=== PATIENT | male | born 1990 | race Caucasian/White ===

== ENCOUNTER 2018-02-15 18:01 | Inpatient (IN) ==
[2018-02-15] MEDS ORDERED: ONDANSETRON 4 MG/2 ML VIAL IVP ONE (18:55)
[2018-02-15] MEDS ORDERED: KETOROLAC 15 MG/1 ML VIAL IVP ONE (18:55)
--- NOTE | 2018-02-15 18:59 | PDOC ---
Gen Adult / Medical Screen HPI - General Chief Complaint: General Medical Stated Complaint: VOMITING, FEVER WITH SHAKING SINCE LAST NIGHT Date Seen by Provider: 02/15/18 Time Seen by Provider: 18:54 Source: POSITIVE: Patient, Spouse Exam Limitations: POSITIVE: No limitations Nurse's Notes Reviewed & Considered: Yes EMS Report Reviewed & Considered: Verbal - Indicators Temperature Between 95 and 101 Degrees: Yes Respirations Between 12 and 20: Yes Blood Pressure Between 100-165 (sys) and 60-100 (almeida): No Pulse Range Between 60-105 (100 for age > 60 years): Yes Severe Pain (Greater than 5/10 Reported): No Chest or Abdominal Pain: Yes Inability to Walk: No Pt Reports Active High Risk Cond. (TB/Hepatitis/HIV/Chemo): No Abnormal Mental Status: No - History of Present Illness Initial Comments: This is a well-developed, well-nourished, very pleasant, 27-year-old male complaining of nausea vomiting and diarrhea. Patient developed chills and sweats last night and began to vomit approximately midnight. He's had a waxing and waning course which acutely got worse this afternoon and he presented to the medical office building and was sent here for further evaluation. His found his temperature to be 103 and gave him to us, 200 mg ibuprofens, which improved his mentation and his myalgias. Patient has had headache, denies sore throat, no chest pain, no cough, no shortness of breath, he does have nausea vomiting and diarrhea, denies any hematuria or dysuria, no rashes. Body Location Affected: REPORTS: Head, Abdomen Timing: REPORTS: Abrupt Duration: <24 hours Similar Symptoms Previously: No Recent Care Received: REPORTS: Denies Any Prior Injuries Related to Current Complaint?: No - Patient Home Medications Home Medications: Home Medications Ibuprofen [Motrin] 400 mg PO PRN 02/15/18 - Patient Allergies Allergies/Adverse Reactions: Allergies 3 Allergy/AdvReac Type Severity Reaction Status Date / Time No Known Allergies Allergy Verified 02/15/18 19:24 Past Medical History - heen HEENT History: Denies History Cardiovascular History: Other (please comment) Additional Cardiovasular History: Open heart surgery for an aneurysm. Respiratory History: Denies History Gastrointestinal History: Denies History Genitourinary History: Denies History Endocrine History: Denies History Musculoskeletal History: Denies History Neurological History: Denies History Blood Disorders: Denies History Psychiatric History: Denies History Male Reproductive History: Denies History Cancer History: Denies History In Past Year Been Physically Harmed or Verbally Threatened: No History of MDRO: No Tobacco Use: Never Smoker In the Past 12 Months, Have Used or Abuse Any Substance: None Previous Surgical History: Yes Type / Date of Surgery: Open heart surgey for aneurysm. Significant Family History: No pertinent family hx ROS - Limitations ROS Limitations: No Limitations Constitution: REPORTS: Chills, Fever, Diaphoresis Cardiovascular: REPORTS: Denies Cardiac Symptoms Respiratory: REPORTS: Denies Resp Symptoms Neurological: REPORTS: Headache Gastrointestinal: REPORTS: Abdominal Pain (Generalized abdominal pain), Nausea, Vomitting, Diarrhea Endocrine: REPORTS: Denies Symptoms Musculoskeletal: REPORTS: Muscle Aches Genitourinary: REPORTS: Denies Symptoms Eyes: REPORTS: Denies Symptoms ENT: REPORTS: Denies Symptoms Skin: REPORTS: Denies Skin Symptoms Lympathic: REPORTS: Denies Lympathic Symptoms Immunologic: POSITIVE: Denies Symptoms Psychiatric: POSITIVE: Denies Psych Symptoms Gen Adult/Medical Screen Exam - General Appearance General Appearance: POSITIVE: Alert, Cooperative, No Acute Distress, No Evidence of Trauma - HEENT HEENT: POSITIVE: Head Inspection Nml, Eyes Inspection Nml, Ears Inspection Nml, Nose Inspection Nml, Oral/Dental Inspect. Nml, Pharynx Inspect. Nml, PERRL, EOMI - Pupils Pupil Size: 5 mm: Bilateral - Neck Neck: POSITIVE: Normal Inspection, Thyroid Normal - Respiratory Respiratory: POSITIVE: No Respiratory Distress, Breath Sounds Normal, Chest Non- Tender - Cardiovascular Cardiovascular: POSITIVE: Regular Rate & Rhythm, No Murmur, No Gallop, PMI Normal Peripheral Pulses: Radial (L): 4+ - Abdomen Abdomen: Soft: (All Quadrants), Normal Bowel Sounds: (All Quadrants), Denies Tenderness: (All Quadrants), No Splenomegaly: (All Quadrants), No Hepatomegaly: (All Quadrants), No Guarding: (All Quadrants), No Rebound: (All Quadrants), No Palpable Pulse: (All Quadrants), No Palpabale Mass: (All Quadrants), No Distention: (All Quadrants), No Rigidity: (All Quadrants) - Back Back: POSITIVE: Normal Inspection - Neurological / Psychological Mental Status: POSITIVE: Mood Normal, Affect Normal Orientation: POSITIVE: Oriented x 3 - Skin Skin: POSITIVE: Normal Color, Warm, Dry, No Rash - Extremities Extremity: Non-Tender: (All Extremities), Normal ROM: (All Extremities), Normal Inspection: (All Extremities), Pelvis Stable: (All Extremities) Gen Adlt/Medical Scrn Progress - Results Reviewed by me Xrays/CTs/US Reviewed by me: Yes Discussed with Radiologist: Yes Lab Results Reviewed by Me: Yes CBC and BMP: 02/15/18 19:10 02/15/18 19:10 Lab Results:: Laboratory Results 3 02/15/18 02/15/18 02/15/18 19:10 19:10 19:45 WBC 16.41 H RBC 5.23 Hgb 14.9 Hct 42.5 MCV 81.3 MCH 28.5 MCHC 35.1 RDW Std Deviation 38.2 L RDW Coeff of Vipin 12.9 Plt Count 149 MPV 10.6 Neutrophils % (Manual) 77 Band Neutrophils % 15 H Lymphocytes % (Manual) 5 L Monocytes % (Manual) 3 Eosinophils % (Manual) 0 Basophils % (Manual) 0 Metamyelocytes % Not Reportable Myelocytes % Not Reportable Promyelocytes % Not Reportable Blast Cells Not Reportable WBC Morphology Comment Normal morphology Plt Morphology Comment Normal morphology RBC Morph Comment Normal morphology Sodium 137 Potassium 3.2 L Chloride 100 Carbon Dioxide 23 Anion Gap 14 BUN 21 Creatinine 1.3 Estimated GFR > 60 BUN/Creatinine Ratio 16.15 Glucose 120 H Calculated Osmolality 287.0 Lactic Acid 2.8 H Calcium 8.3 L Magnesium 1.0 L Total Bilirubin 2.5 H AST 48 ALT 48 Alkaline Phosphatase 38 Total Protein 6.3 Albumin 3.9 Globulin 2.4 L Albumin/Globulin Ratio 1.60 Ur Collection Type Urine Color Urine Clarity Urine pH Ur Specific [place] Urine Protein Urine Glucose (UA) Urine Ketones Urine Occult Blood Urine Nitrate Urine Bilirubin Urine Urobilinogen Ur Leukocyte Esterase Urine RBC Urine WBC Ur Squamous Epith Cells Ur Renal Epithelial Cell Urine Crystals Urine Bacteria Urine Casts Urine Mucus Urine Trichomonas Urine Yeast Ur Culture Indicated? 3 02/15/18 21:10 WBC RBC Hgb Hct MCV MCH MCHC RDW Std Deviation RDW Coeff of Vipin Plt Count MPV Neutrophils % (Manual) Band Neutrophils % Lymphocytes % (Manual) Monocytes % (Manual) Eosinophils % (Manual) Basophils % (Manual) Metamyelocytes % Myelocytes % Promyelocytes % Blast Cells WBC Morphology Comment Plt Morphology Comment RBC Morph Comment Sodium Potassium Chloride Carbon Dioxide Anion Gap BUN Creatinine Estimated GFR BUN/Creatinine Ratio Glucose Calculated Osmolality Lactic Acid Calcium Magnesium Total Bilirubin AST ALT Alkaline Phosphatase Total Protein Albumin Globulin Albumin/Globulin Ratio Ur Collection Type Voided specimen Urine Color Yellow Urine Clarity Clear Urine pH 5.5 Ur Specific [place] 1.025 Urine Protein 100 A Urine Glucose (UA) Negative Urine Ketones Negative Urine Occult Blood Negative Urine Nitrate Negative Urine Bilirubin Small Urine Urobilinogen 1.0 Ur Leukocyte Esterase Negative Urine RBC None Urine WBC 0-2 Ur Squamous Epith Cells Few Ur Renal Epithelial Cell None Urine Crystals None Urine Bacteria Rare Urine Casts None Urine Mucus Many Urine Trichomonas None Urine Yeast None Ur Culture Indicated? Culture not set - Patient's Progress Pain Medication Addressed: POSITIVE: Yes Re-Examine Time: 21:13 Status: POSITIVE: Improved - Consult Consult (If Yes, Name of Consulting MD & Time Called): Yes (2119 hrs, Dr. Hassan) Consulting MD will see pt:: POSITIVE: [facility] Admit Counseled: POSITIVE: Patient, Family, RE: Lab Results, RE: Radiology Results, RE : DX, RE: Need for F/U Patient Care Time - Estimated PCT Patient Care Time (In Minutes): 30 Vital Signs - Recent Vital Signs Vital Signs: Vital Signs (Last 8 hours) Temp Pulse Resp BP Pulse Ox 02/15/18 18:10 96.3 F L 100 16 96/53 94 02/15/18 18:01 96.3 F L 100 16 96/53 94 - VS Reviewed Vital Signs Reviewed: Yes Discharge Clinical Impression: Gastroenteritis, Dehydration, Fever Discharge Disposition: Admit to Observation Condition: Stable Follow Up With: NONE,NONE [Primary Care Provider] - Date Decision to Admit to Inpatient: 02/15/18 Time Decision to Admit to Inpatient: 21:39
[2018-02-15] MEDS: Sodium Chloride 0.9% 1,000 ML PRIMARY IV ONE (19:05)
[2018-02-15 19:12] LABS: Hematocrit [HCT] 42.5 % (42.0-52.0); Hemoglobin [HGB] 14.9 g/dL (14.0-18.0); MEAN CORPUSCULAR HEMOGLOBIN 28.5 PG (27-31); MEAN CORPUSCULAR HGB CONC 35.1 g/dL (33-37); MEAN CORPUSCULAR VOLUME 81.3 FL (80-90); MEAN PLATELET VOLUME 10.6 FL (7.4-12.2); RED BLOOD COUNT 5.23 10^6/uL (4.70-6.10)
[2018-02-15 19:23] LABS: BLOOD UREA NITROGEN 21 mg/dL (7-22); BUN/CREATININE RATIO 16.15 (6-20); SERUM ALBUMIN 3.9 g/dL (3.5-4.8)
[2018-02-15 19:27] LABS: BAND NEUTROPHILS % 15 % (0-10); BASOPHILS % (MANUAL) 0 % (0-1); EOSINOPHILS % (MANUAL) 0 % (0-8); MONOCYTES % (MANUAL) 3 % (0-12); NEUTROPHILS % (MANUAL) 77 % (50-80); PLATELET MORPHOLOGY COMMENT NORMAL MORPHOLOGY (NORM); RBC MORPHOLOGY COMMENT NORMAL MORPHOLOGY (NORM); WBC MORPHOLOGY COMMENT NORMAL MORPHOLOGY (NORM)
[2018-02-15] MEDS ORDERED: Magnesium Sulfate 2gm (Premix) 2 GM/50 ML BAG IV ONE ×2 (19:31→22:56)
[2018-02-15] MEDS ORDERED: Sodium Chloride 0.9% 1,000 ML PRIMARY IV ONE ×2 (20:34→22:56)
--- NOTE | 2018-02-15 20:34 | DI ---
EXAM: XR Abdomen 2 Views With XR Chest CLINICAL HISTORY: ITS.REASON fever/n/v Physician Notes: Tech Comments: TECHNIQUE: Frontal view of the chest, frontal view of the abdomen/pelvis and upright or decubitus view of the abdomen. COMPARISON: No relevant prior studies available. FINDINGS: Lungs: Mild lower lung opacities, possible atelectasis. Pleural space: Unremarkable. No pneumothorax. Heart: Cardiac silhouette within normal limits. Mediastinum: Unremarkable. Intraperitoneal space: No free air. Gastrointestinal tract: Scattered air-fluid levels, query ileus or enteritis. No significant bowel distention. Bones/joints: Unremarkable. Other findings: Postsurgical noted in the chest. IMPRESSION: 1. Mild lower lung opacities, possible atelectasis. 2. Scattered air-fluid levels, query enteritis or ileus. No significant bowel distention.
[2018-02-15 21:12] LABS: BILIRUBIN,URINE SMALL (NEG); CLARITY,URINE CLEAR (CLEAR); COLOR,URINE YELLOW (Y); GLUCOSE, URINE (UA) NEGATIVE (NEG); OCCULT BLOOD,URINE NEGATIVE (NEG); PH,URINE 5.5 (5.0-8.5); PROTEIN,URINE 100 mg/dl (NEG)
[2018-02-15 21:21] LABS: BACTERIA,URINE RARE; SQUAMOUS EPITHELIAL CELL,UR FEW; URINE SAMPLE TYPE VOIDED SPECIMEN; WBC,URINE 0-2
[2018-02-15] MEDS ORDERED: Acetaminophen 1000mg Inj 1,000 MG/100 ML VIAL IV PRN (21:50)
[2018-02-15] MEDS ORDERED: LIDOCAINE W/ SODIUM BICARB 0.5 ML SYR SUBD PRN (22:10)
[2018-02-15] MEDS ORDERED: ONDANSETRON 4 MG/2 ML VIAL IVP PRN (22:10)
--- NOTE | 2018-02-15 23:39 | PDOC ---
HPI - History of Present Illness Date of Service: 02/15/18 Time of Service: 23:00 Chief Complaint: Nausea and vomiting with fever History of Present Illness: This very pleasant 19-year-old male who had prior history of aortic valve, biologic valve replacement, along with an aortic root repair at age 17 or so with no other medical history who comes in accompanied by his common-law with complaints of nausea and vomiting and fever. The patient started vomiting yesterday profusely. They tried power aid, fluids, and rest but the patient does seem to get worse. If she started shaking initially and had what is described as Rigors. The patient denies having anything like this before. He denies any diarrhea or constipation black or tarry stools or blood in the stool or blood in the vomit. He states that he has not had any sick contacts. Apparently they were doing some work around the sewers close to the patient's house yesterday, and the water had a bad odor to it and the patient had some drinks of water as he was doing some lawn work but outside of that he's not had any exposure to well water or other issues. The patient again denied any diarrhea. He described having abdominal pain in the periumbilical region. No complaints of right lower quadrant tenderness. He complained of a sore throat and a treated that to his vomiting. The patient became a little disoriented with his fever as high as 103 today and he came into the emergency room for evaluation, is found to have bandemia, his lactic acid was slightly elevated, he was dehydrated, had electrolyte abnormalities, and is admitted for evaluation and management at this time. He does have a history of a heart murmur which was latter after his surgery, but he has not had any cardiac evaluation since moving out here in late July of this year. He had a surgery done in [place], [place]. They tried ibuprofen for fever relief and he had 400 mg of ibuprofen tonight. Antiemetics in the emergency room seemed to help. Past Medical History Medical History: 1. 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 Aortic root repair Pertinent Family History: Significant for heart disease. Past Social History: Does not smoke or drink. Has been with his girlfriend for over 8 years they have a daughter together. 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 Lives here in [facility] Tobacco Use: Never Smoker In the Past 12 Months, Have Used or Abuse Any of the Following Substance: None Alcohol Use: None Medication / Allergies Home Medications: Home Medications 3 Medication Instructions Recorded Confirmed Type Ibuprofen [Motrin] 400 mg PO PRN 02/15/18 02/15/18 History Allergies/Adverse Reactions: Allergies 3 Allergy/AdvReac Type Severity Reaction Status Date / Time No Known Allergies Allergy Verified 02/15/18 19:24 Review of Systems - Review of Systems All Systems: Reviewed & No Additional Complaints Except as Stated (I did a 12 point review systems and is negative other than that discussed in history present illness and that noted below.) - Constitutional Constitutional: REPORTS: Fever / Chills, Other (Had recent dental work within the last 90 days. He had prophylaxis of 2000 mg of amoxicillin but had a cavity filled at that time.) - Respiratory Respiratory: REPORTS: Negative System Review - Cardiovascular Cardiovascular: REPORTS: Other (Heart murmur and prior history of surgery) - Gastrointestinal Gastrointestinal / Abdominal: REPORTS: Nausea, Vomiting, Abdominal Pain - Genitourinary Genitourinary: REPORTS: Negative System Review (Denied any burning or irritation , but noticed decreased urine output.) Exam - Vitals Vital Signs: Vital Signs Temperature 103 F Temperature Source Oral Pulse Rate [Pulse Oximeter] 121 Pulse Rate 125 Respiratory Rate 24 Blood Pressure [Right Arm] 102/55 Blood Pressure [Left Arm] 96/53 Blood Pressure 104/55 Pulse Ox 95 Oxygen Delivery Method Room Air Height 6 ft 1 in Weight 214 lb - General General Appearance: Cooperative, Mild Distress (The patient looks ill, is febrile, but not toxic, alert.) - Head Head Exam: Normal Inspection, Normocephalic, Atraumatic - Eye Eye Exam: POSITIVE: EOMI, No Scleral Icterus, Conjuctival Injection (The patient does not have conjunctival help hemorrhages and does not have any conjunctival injection) - ENT ENT Exam: POSITIVE: Mucous Membranes Dry Additonal ENT Exam Details: Oropharynx looked very red to me. I had a rapid strep done which is a molecular strep and it was negative. - Neck Neck Exam: Normal Inspection, No Tenderness, No Lymphadenopathy, No Thyromegaly , JVP is not Raised - Respiratory Respiratory Exam: POSITIVE: Clear to Auscultation - Bilaterally, Breathing Non Labored, Normal to Percussion and Palpation - Cardiovascular Cardiovascular Exam: POSITIVE: No Clicks, No Gallops, No Rubs, Tachycardia, Systolic Murmur (Probably 3/6 best heard in the left upper sternal border), No JVD - GI/Abdominal GI/Abdominal Exam: POSITIVE: Normal Bowel Sounds, Non Tender, Non Distended, Soft Additional GI/Abdominal Exam Details: No evidence of rebound tenderness., McBurney's point negative. I had the patient flexes knees to his chest and there was no irritation of his abdominal pain - Rectal Rectal Exam: POSITIVE: Deferred - External Exam: POSITIVE: Deferred Exam: POSITIVE: Deferred - Extremities Extremities Exam: POSITIVE: No Clubbing Present, No Edema Present, No Cyanosis Present - Back Back Exam: POSITIVE: Normal Inspection, No CVA Tenderness - Neurological Neurological Exam: POSITIVE: Alert, Oriented x 3, No Facial Droop, Speech Intact / Clear, Moves All Extremities Equally - Psychiatric Psychiatric Exam: POSITIVE: Normal Affect, Normal Mood - Integumentary Integumentary Exam: POSITIVE: Warm, Dry Additional Integumentary Exam Details: Hot to touch with fever, not clammy and not diaphoretic Results - Labs CBC and BMP: 02/15/18 19:10 02/15/18 19:10 Additional Lab Results: Laboratory Results 02/15/18 02/15/18 02/15/18 Range/Units 19:10 19:10 19:45 WBC 16.41 H (4.8-10.8) 10^3/uL RBC 5.23 (4.70-6.10) 10^6/uL Hgb 14.9 (14.0-18.0) g/dL Hct 42.5 (42.0-52.0) % MCV 81.3 (80-90) FL MCH 28.5 (27-31) PG MCHC 35.1 (33-37) g/dL RDW Std Deviation 38.2 L (39-50) fL RDW Coeff of Vipin 12.9 (11.5-14.5) % Plt Count 149 (140-350) 10*3/uL MPV 10.6 (7.4-12.2) FL Neutrophils % (Manual) 77 (50-80) % Band Neutrophils % 15 H (0-10) % Lymphocytes % (Manual) 5 L (10-50) % Monocytes % (Manual) 3 (0-12) % Eosinophils % (Manual) 0 (0-8) % Basophils % (Manual) 0 (0-1) % Metamyelocytes % Not Reportable Myelocytes % Not Reportable Promyelocytes % Not Reportable Blast Cells Not Reportable WBC Morphology Comment Normal morphology (NORM) Plt Morphology Comment Normal morphology (NORM) RBC Morph Comment Normal morphology (NORM) Sodium 137 (135-145) meq/L Potassium 3.2 L (3.8-5.2) meq/L Chloride 100 (98-112) meq/L Carbon Dioxide 23 (23-33) meq/L Anion Gap 14 (5-20) BUN 21 (7-22) mg/dL Creatinine 1.3 (0.70-1.50) mg/dL Estimated GFR > 60 (>60 ml/min/1.73m(2)) BUN/Creatinine Ratio 16.15 (6-20) Glucose 120 H (78-110) mg/dL Calculated Osmolality 287.0 (267-292) mOsm/kg Lactic Acid 2.8 H (0.70-2.10) MMOL/L Calcium 8.3 L (8.7-10.7) mg/dL Magnesium 1.0 L (1.6-2.4) mg/dL Total Bilirubin 2.5 H (0.3-1.2) mg/dL AST 48 (21-57) IU/L ALT 48 (21-72) IU/L Alkaline Phosphatase 38 (38-126) IU/L Total Protein 6.3 (6.1-8.0) g/dL Albumin 3.9 (3.5-4.8) g/dL Globulin 2.4 L (2.50-4.10) g/dL Albumin/Globulin Ratio 1.60 (1.3-2.0) mg/g Ur Collection Type Urine Color (Y) Urine Clarity (CLEAR) Urine pH (5.0-8.5) Ur Specific [place] (1.005-1.030) Urine Protein (NEG) mg/dl Urine Glucose (UA) (NEG) mg/dL Urine Ketones (NEG) Urine Occult Blood (NEG) Urine Nitrate (NEG) Urine Bilirubin (NEG) Urine Urobilinogen (0.2) EU/dL Ur Leukocyte Esterase (NEG) Urine RBC (NONE) /hpf Urine WBC (NONE) Ur Squamous Epith Cells (NONE) Ur Renal Epithelial Cell (NONE) Urine Crystals Urine Bacteria (NONE) Urine Casts (NONE) Urine Mucus (NONE) Urine Trichomonas (NONE) Urine Yeast (NONE) Ur Culture Indicated? Group A Strep Screen (NEGATIVE) 02/15/18 02/15/18 Range/Units 21:10 23:09 WBC (4.8-10.8) 10^3/uL RBC (4.70-6.10) 10^6/uL Hgb (14.0-18.0) g/dL Hct (42.0-52.0) % MCV (80-90) FL MCH (27-31) PG MCHC (33-37) g/dL RDW Std Deviation (39-50) fL RDW Coeff of Vipin (11.5-14.5) % Plt Count (140-350) 10*3/uL MPV (7.4-12.2) FL Neutrophils % (Manual) (50-80) % Band Neutrophils % (0-10) % Lymphocytes % (Manual) (10-50) % Monocytes % (Manual) (0-12) % Eosinophils % (Manual) (0-8) % Basophils % (Manual) (0-1) % Metamyelocytes % Myelocytes % Promyelocytes % Blast Cells WBC Morphology Comment (NORM) Plt Morphology Comment (NORM) RBC Morph Comment (NORM) Sodium (135-145) meq/L Potassium (3.8-5.2) meq/L Chloride (98-112) meq/L Carbon Dioxide (23-33) meq/L Anion Gap (5-20) BUN (7-22) mg/dL Creatinine (0.70-1.50) mg/dL Estimated GFR (>60 ml/min/1.73m(2)) BUN/Creatinine Ratio (6-20) Glucose (78-110) mg/dL Calculated Osmolality (267-292) mOsm/kg Lactic Acid (0.70-2.10) MMOL/L Calcium (8.7-10.7) mg/dL Magnesium (1.6-2.4) mg/dL Total Bilirubin (0.3-1.2) mg/dL AST (21-57) IU/L ALT (21-72) IU/L Alkaline Phosphatase (38-126) IU/L Total Protein (6.1-8.0) g/dL Albumin (3.5-4.8) g/dL Globulin (2.50-4.10) g/dL Albumin/Globulin Ratio (1.3-2.0) mg/g Ur Collection Type Voided specimen Urine Color Yellow (Y) Urine Clarity Clear (CLEAR) Urine pH 5.5 (5.0-8.5) Ur Specific [place] 1.025 (1.005-1.030) Urine Protein 100 A (NEG) mg/dl Urine Glucose (UA) Negative (NEG) mg/dL Urine Ketones Negative (NEG) Urine Occult Blood Negative (NEG) Urine Nitrate Negative (NEG) Urine Bilirubin Small (NEG) Urine Urobilinogen 1.0 (0.2) EU/dL Ur Leukocyte Esterase Negative (NEG) Urine RBC None (NONE) /hpf Urine WBC 0-2 (NONE) Ur Squamous Epith Cells Few (NONE) Ur Renal Epithelial Cell None (NONE) Urine Crystals None Urine Bacteria Rare (NONE) Urine Casts None (NONE) Urine Mucus Many (NONE) Urine Trichomonas None (NONE) Urine Yeast None (NONE) Ur Culture Indicated? Culture not set Group A Strep Screen Negative (NEGATIVE) - Imaging Status: Image Reviewed by Me (Chest x-ray is negative on my view for pneumonia or acute cardiac pulmonary disease process, the acute abdominal series portion does show some air-fluid levels but no evidence of dilation of bowel) Assessment and Plan - Patient Problems (1) Sepsis Current Visit: Yes Status: Acute Code(s): A41.9 - Sepsis, unspecified organism Qualifiers: Sepsis type: sepsis due to unspecified organism Qualified Code(s): A41.9 - Sepsis, unspecified organism (2) Nausea and vomiting Current Visit: Yes Status: Acute Code(s): R11.2 - Nausea with vomiting, unspecified Qualifiers: Vomiting type: unspecified Vomiting Intractability: non-intractable Qualified Code(s): R11.2 - Nausea with vomiting, unspecified (3) Rigors Current Visit: Yes Status: Acute Code(s): R68.89 - Other general symptoms and signs (4) H/O aortic valve replacement Current Visit: Yes Status: Acute Code(s): Z95.2 - Presence of prosthetic heart valve (5) Heart murmur Current Visit: Yes Status: Acute Code(s): R01.1 - Cardiac murmur, unspecified (6) Fever Current Visit: Yes Status: Acute Code(s): R50.9 - Fever, unspecified - Assessment / Plan Additional Assessment/Plan Details: This could be a gastroenteritis, could be viral but with temperatures of 103, bandemia, and elevated lactic acid, tachycardia, heart murmur, the differential could be wider than just gastrointestinal in nature. I think we should do a CT scan of the abdomen and pelvis to make sure there is no evidence of appendicitis despite negative McBurney's point examination given his gastric intestinal symptoms. If the CT scan is negative for any acute findings that would explain symptoms, then I think we need to presume that he could be bacteremic and could have underlying endocarditis given his recent dental work within the last 90 days and rigors, and murmur. Although he has had the murmur for quite some time, I think this would be a potential source of infection. He did not have any physical stigmata of endocarditis. I like to replace the electrolytes including potassium and magnesium, I will give the patient another normal saline bolus. Patient actually does meet sepsis criteria with hypotension, tachycardia, elevation white blood cell counts, and probable infection. I've ordered stool studies but thus far no diarrhea. I spoke with the patient and his . If the CT scan is negative, I will call , discuss with infectious disease specialist, and determine the best route to go , and I do think the patient would then warrant further evaluation for potential endocarditis. Hold on antibiotics until we have a better or more clearer idea of source of infection.
[2018-02-16 00:03] VITALS: RESP 18; TEMP 99.8; O2SAT 93
[2018-02-16] MEDS: Sodium Chloride 0.9% 1,000 ML PRIMARY IV ONE (00:18)
--- NOTE | 2018-02-16 00:34 | DI ---
EXAM: CT Abdomen and Pelvis With Intravenous Contrast CLINICAL HISTORY: ITS.REASON fever, abdominal pain, question appendicitis Physician Notes: oral and IV and rectal contrast.Tech Comments: TECHNIQUE: Axial computed tomography images of the abdomen and pelvis with intravenous contrast. COMPARISON: No relevant prior studies available. FINDINGS: Lung bases: No acute findings. ABDOMEN: Liver: Hepatomegaly. Gallbladder and bile ducts: Slightly prominent gallbladder wall, nonspecific. Pancreas: Unremarkable. Spleen: Borderline splenomegaly with ill-defined splenic hypodensity at the superior aspect. Adrenals: Unremarkable. Kidneys and ureters: Small ill-defined hypodensities in the right kidney, raising possibility of pyelonephritis in the appropriate clinical setting. No hydronephrosis. Stomach and bowel: Fluid in the small and large bowel, can be seen with enteritis or diarrheal disease. Mild wall thickening or underdistention of the terminal ileum and ascending colon. No evidence of bowel obstruction. PELVIS: Appendix: Visualized portions of the appendix appear normal in caliber. Bladder: Mildly thickened underdistended bladder. Reproductive: Unremarkable as visualized. ABDOMEN and PELVIS: Intraperitoneal space: No free air. No significant fluid collection. Bones/joints: Unremarkable. Soft tissues: Tiny fat-containing umbilical hernia. Vasculature: Unremarkable. Lymph nodes: Small nonspecific mesenteric and retroperitoneal lymph nodes. IMPRESSION: 1. Small ill-defined hypodensities in the right kidney, raising possibility of pyelonephritis in the appropriate clinical setting. 2. Fluid in the small and large bowel, can be seen with enteritis or diarrheal disease. 3. Small splenic hypodensity. Differential considerations include age- indeterminate infarct, trauma, infection, or other etiology. 4. Slightly prominent gallbladder wall, nonspecific. Ultrasound may be considered if there is concern for cholecystitis. 5. No evidence for appendicitis.
[2018-02-16] MEDS ORDERED: LIDOCAINE 2% 20 MG/ML - 20 ML VIAL ONE (01:12)
[2018-02-16] MEDS ORDERED: LIDOCAINE W/ SODIUM BICARB 0.5 ML SYR SUBD PRN (01:29)
[2018-02-16] MEDS ORDERED: ONDANSETRON 4 MG/2 ML VIAL IVP PRN (01:29)
[2018-02-16] MEDS ORDERED: Acetaminophen 1000mg Inj 1,000 MG/100 ML VIAL IV PRN (01:29)
[2018-02-16] MEDS ORDERED: Norepinephrine Drip 8 MG in D5W 250 ML IV SCH (01:30)
--- NOTE | 2018-02-16 01:35 | DI ---
EXAM: CT Abdomen and Pelvis With Intravenous Contrast CLINICAL HISTORY: ITS.REASON fever abd pain question appendicitis Physician Notes: Tech Comments: TECHNIQUE: Axial computed tomography images of the abdomen and pelvis with intravenous contrast. COMPARISON: CT 02/15/18. FINDINGS: No evidence of appendicitis. Contrast excretion noted from the bilateral kidneys, heterogeneous on the right. Mild right perinephric stranding noted. Mild nonspecific mesenteric and retroperitoneal stranding also seen. There is dense material in the colon, presumably contrast material. No evidence of bowel obstruction. Please refer to recent CT abdomen/pelvis report for additional findings. IMPRESSION: No significant interval change.
[2018-02-16] MEDS ORDERED: NOREPINEPHRINE BITARTRATE 4 MG/4 ML VIAL IV ONE (01:40)
[2018-02-16] MEDS ORDERED: cefTRIAXone Inj 2 GM in Sodium Chloride 0.9% 100 ML IV SCH (01:45)
[2018-02-16 01:49] LABS: BLOOD UREA NITROGEN 20 mg/dL (7-22); BUN/CREATININE RATIO 16.66 (6-20)
[2018-02-16] MEDS ORDERED: HEPARIN 500 UNIT/5 ML SYRINGE FOR CENTRAL LINE IVP ONE (01:49)
--- NOTE | 2018-02-16 01:51 | PROCEDURE1 ---
Procedure - - Date and Time of Service: 02/16/2018, 0 1:20 AM Procedure Performed: Central Line : Non Tunneled Procedure Note: Procedure performed: Right Internal jugular central venous catheter placement Indication for procedure: Septic shock, hypotension, low mean arterial pressure, with risks discussed as possible arterial puncture, pneumothorax, and localized pain, bleeding and infection. Benefits for medication administration, blood draws, hemodynamic monitoring, and management of septic shock and hypotension. Description of procedure: The patient was prepped and draped in the usual fashion with a full body drape. Ultrasound guidance was used to identify the right internal jugular vein. The area was cleansed with chlorhexidine. Lidocaine was used for local anesthesia. Using an introducer needle attached to a 5 mL syringe, this was inserted and angled towards the ipsilateral nipple, with ultrasound guidance as well. There was a flash of venous blood as the internal jugular vein was cannulated via the introducer needle. Dark purple, venous blood was noted to drip at the hub of the needle. It was not pulsatile. A guidewire was inserted through the needle into the internal jugular vein and the needle was removed over the wire. A 10 blade was then used to perform a small dermatotomy at the needle insertion site. The venous dilator was then placed over the guidewire using Seldinger technique, and then removed. 4 port central venous catheter was then placed over the guidewire inserted into the internal jugular vein and the guidewire was removed. All ports were flushed with normal saline. All ports had draw back. Ultrasound was actually used to confirm guidewire placement and the needle was seen to penetrate into the internal jugular vein as well. The catheter was sutured into place, and the skin was cleansed with chlorhexidine and the catheter was dressed. A postprocedure x-ray showed a right internal jugular vein central venous catheter with the tip at the cavoatrial junction and no evidence of pneumothorax. I personally reviewed the chest X-ray. Complications: No apparent complications at time of procedure Disposition: Patient remains in the intensive care unit and critical condition and will be transferred to [facility] for further definitive care with oracle fusion middleware developer
--- NOTE | 2018-02-16 01:58 | DCSUMMARY ---
Hospitalization Summary Admit Date: 02/15/2018 Discharge Date: 02/16/18 Primary Diagnosis:: septic shock, unclear etiology Secondary Diagnosis:: Hypotension Hospital Course: Very pleasant 27-year-old male presented yesterday fairly late in the evening with complaints of Rigors, chills, fever as high as 103, and nausea and vomiting. This shaking and chills started first. The nausea and vomiting and some periumbilical pain started after that. The patient was tachycardic, and initially had preserved blood pressures. Despite 4 L of normal saline, the patient's blood pressures have decreased and his mean arterial pressure is below 65. We did do CT scan of the abdomen and pelvis with contrast, IV, oral, and rectal although he could not hold the rectal contrast in case this was an atypical presentation of appendicitis. The scan showed some hypodensities in the kidneys and a hypodensity in the spleen and some possible gallbladder wall thickening, but his abdominal pain resolved. 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 This was done at around age 17. It was done in [place], [place]. He had an aortic root repair at that time as well. He has not had cardiology follow-up in some time. We did an MRSA screening that is pending. Blood cultures are drawn and are pending. Urinalysis showed some protein but was negative otherwise. The patient complained of a sore throat, treated to his vomiting, but it looked fairly red on my examination which is not too surprising given the history, but I did screen for strep and it was negative. This is a molecular screen. Lactic acid initially was 2.8 and this is being redrawn and is pending. As the patient's temperatures come down, he is not confused. But given his presentation of developing septic shock, we placed a right internal jugular central venous catheter, 4 port and started lives at at 8 mics per minute. There is no evidence of pneumothorax post procedure and the line looked placed in the correct position. I spoke to the nuclear medicine medical director at [facility] who agreed to accept the patient. We spoke about antibiotics and we will cover the patient empirically with Rocephin, 2 g IV 1 and vancomycin, 1500 mg IV 1 dose now. This will be placed IV prior to transport. The patient agreed to the transfer and accepted the transfer. Assessment and Plan: 1. As per discharge assessments noted 2. Disposition: Will be transferred to [facility] ICU 3. Condition on discharge, critical, but is stable as we can get him at this time. His condition could deteriorate. 4. Diet: I'll have him go nothing by mouth leaving here 5. Activities: As per [facility] 6. Follow-Up: 1. Needs primary care physician here in [place] 2. Would benefit from establishment of a rod finisher as well for continued monitoring of aortic valve function 7. Medications at the Time of Discharge: Active Medications Generic Name Dose Route Start Last Admin Trade Name Freq PRN Reason Stop Dose Admin Sodium Chloride 25 mls @ 200 mls/hr 02/16/18 01:29 Normal Saline 0.9% IV .Post Infusion PRN Flush Potassium Chloride/Sodium Chloride 1,000 mls @ 125 mls/hr 02/16/18 01:29 08/05 01:56 Pot Chl 20meq + Ns PRIMARY IV 125 mls/hr .Q8H JUDE Administration Potassium Chloride 20 meq in 100 mls @ 50 mls/hr 02/16/18 01:29 Potassium Chloride 20 Meq IV 02/16/18 03:28 ONCE ONE Norepinephrine Bitartrate 8 mg 258 mls @ 15.48 mls/hr 02/16/18 01:30 01:50 / Dextrose IV 8 mcg/min .TITRATE JUDE 15.48 mls/hr Administration Protocol 8 MCG/MIN Acetaminophen 1,000 mg in 100 mls @ 400 mls/hr 02/16/18 01:29 Ofirmev 1000mg Inj IV ONCE PRN Pain Vancomycin HCl 1.5 gm/ Sodium 250 mls @ 250 mls/hr 02/16/18 01:39 02/16/18 02 :00 Chloride IV 02/16/18 02:38 250 mls/hr ONCE (ED) ONE Administration Ceftriaxone Sodium 2 gm/ 100 mls @ 200 mls/hr 02/16/18 01:45 02/16/18 01:59 Sodium Chloride IV 200 mls/hr ONCE JUDE Administration Lidocaine HCl 0.5 ml 02/16/18 01:29 Lidocaine Buffered Inj SUBD ONCE PRN IV Starts Ondansetron HCl 4 mg 02/16/18 01:29 Zofran Inj IVP Q6H PRN NAUSEA / VOMITING 8. Time, care, counseling and coordination of care for this discharge is greater than 30 minutes. Exam - Vitals Vital Signs: Vital Signs Temperature 99.8 F Temperature Source Temporal Artery Scan Pulse Rate [Pulse Oximeter] 120 Pulse Rate 125 Respiratory Rate 18 Blood Pressure [Right Arm] 98/37 Blood Pressure [Left Arm] 96/53 Blood Pressure 104/55 Pulse Ox 93 Oxygen Delivery Method Room Air Height 6 ft 1 in Weight 214 lb Vital Signs (24 hrs) Temp Pulse Pulse Resp BP BP BP 02/16/18 00:22 98/37 02/16/18 00:18 82/47 02/16/18 00:12 74/40 02/16/18 00:04 80/37 02/16/18 00:00 99.8 F H 120 H 18 64/41 02/15/18 22:30 103 F H 121 H 24 102/55 02/15/18 22:10 02/15/18 22:08 103.1 F H 125 H 16 104/55 02/15/18 18:10 96.3 F L 100 16 96/53 02/15/18 18:01 96.3 F L 100 16 96/53 Pulse Ox 02/16/18 00:22 02/16/18 00:18 02/16/18 00:12 02/16/18 00:04 02/16/18 00:00 93 02/15/18 22:30 95 02/15/18 22:10 98 02/15/18 22:08 96 02/15/18 18:10 94 02/15/18 18:01 94 - General General Appearance: Cooperative - Head Head Exam: Normal Inspection, Normocephalic, Atraumatic - Eye Eye Exam: POSITIVE: No Scleral Icterus - ENT ENT Exam: POSITIVE: Mucous Membranes Dry - Respiratory Respiratory Exam: POSITIVE: Clear to Auscultation - Bilaterally, Breathing Non Labored - Cardiovascular Cardiovascular Exam: POSITIVE: No Clicks, No Gallops, No Rubs, Tachycardia, Systolic Murmur, No JVD - GI/Abdominal GI/Abdominal Exam: POSITIVE: Normal Bowel Sounds, Non Tender, Non Distended, Soft - Extremities Extremities Exam: POSITIVE: No Clubbing Present, No Edema Present, No Cyanosis Present - Neurological Neurological Exam: POSITIVE: Alert, Oriented x 3, No Facial Droop, Speech Intact / Clear, Moves All Extremities Equally Data Peritnent Studies: Laboratory Results 02/15/18 02/15/18 02/15/18 Range/Units 19:10 19:10 19:45 WBC 16.41 H (4.8-10.8) 10^3/uL RBC 5.23 (4.70-6.10) 10^6/uL Hgb 14.9 (14.0-18.0) g/dL Hct 42.5 (42.0-52.0) % MCV 81.3 (80-90) FL MCH 28.5 (27-31) PG MCHC 35.1 (33-37) g/dL RDW Std Deviation 38.2 L (39-50) fL RDW Coeff of Vipin 12.9 (11.5-14.5) % Plt Count 149 (140-350) 10*3/uL MPV 10.6 (7.4-12.2) FL Neutrophils % (Manual) 77 (50-80) % Band Neutrophils % 15 H (0-10) % Lymphocytes % (Manual) 5 L (10-50) % Monocytes % (Manual) 3 (0-12) % Eosinophils % (Manual) 0 (0-8) % Basophils % (Manual) 0 (0-1) % Metamyelocytes % Not Reportable Myelocytes % Not Reportable Promyelocytes % Not Reportable Blast Cells Not Reportable WBC Morphology Comment Normal morphology (NORM) Plt Morphology Comment Normal morphology (NORM) RBC Morph Comment Normal morphology (NORM) Sodium 137 (135-145) meq/L Potassium 3.2 L (3.8-5.2) meq/L Chloride 100 (98-112) meq/L Carbon Dioxide 23 (23-33) meq/L Anion Gap 14 (5-20) BUN 21 (7-22) mg/dL Creatinine 1.3 (0.70-1.50) mg/dL Estimated GFR > 60 (>60 ml/min/1.73m(2)) BUN/Creatinine Ratio 16.15 (6-20) Glucose 120 H (78-110) mg/dL Calculated Osmolality 287.0 (267-292) mOsm/kg Lactic Acid 2.8 H (0.70-2.10) MMOL/L Calcium 8.3 L (8.7-10.7) mg/dL Magnesium 1.0 L (1.6-2.4) mg/dL Total Bilirubin 2.5 H (0.3-1.2) mg/dL AST 48 (21-57) IU/L ALT 48 (21-72) IU/L Alkaline Phosphatase 38 (38-126) IU/L Total Protein 6.3 (6.1-8.0) g/dL Albumin 3.9 (3.5-4.8) g/dL Globulin 2.4 L (2.50-4.10) g/dL Albumin/Globulin Ratio 1.60 (1.3-2.0) mg/g Ur Collection Type Urine Color (Y) Urine Clarity (CLEAR) Urine pH (5.0-8.5) Ur Specific [place] (1.005-1.030) Urine Protein (NEG) mg/dl Urine Glucose (UA) (NEG) mg/dL Urine Ketones (NEG) Urine Occult Blood (NEG) Urine Nitrate (NEG) Urine Bilirubin (NEG) Urine Urobilinogen (0.2) EU/dL Ur Leukocyte Esterase (NEG) Urine RBC (NONE) /hpf Urine WBC (NONE) Ur Squamous Epith Cells (NONE) Ur Renal Epithelial Cell (NONE) Urine Crystals Urine Bacteria (NONE) Urine Casts (NONE) Urine Mucus (NONE) Urine Trichomonas (NONE) Urine Yeast (NONE) Ur Culture Indicated? Group A Strep Screen (NEGATIVE) 02/15/18 02/15/18 02/16/18 Range/Units 21:10 23:09 01:39 WBC (4.8-10.8) 10^3/uL RBC (4.70-6.10) 10^6/uL Hgb (14.0-18.0) g/dL Hct (42.0-52.0) % MCV (80-90) FL MCH (27-31) PG MCHC (33-37) g/dL RDW Std Deviation (39-50) fL RDW Coeff of Vipin (11.5-14.5) % Plt Count (140-350) 10*3/uL MPV (7.4-12.2) FL Neutrophils % (Manual) (50-80) % Band Neutrophils % (0-10) % Lymphocytes % (Manual) (10-50) % Monocytes % (Manual) (0-12) % Eosinophils % (Manual) (0-8) % Basophils % (Manual) (0-1) % Metamyelocytes % Myelocytes % Promyelocytes % Blast Cells WBC Morphology Comment (NORM) Plt Morphology Comment (NORM) RBC Morph Comment (NORM) Sodium (135-145) meq/L Potassium (3.8-5.2) meq/L Chloride (98-112) meq/L Carbon Dioxide (23-33) meq/L Anion Gap (5-20) BUN (7-22) mg/dL Creatinine (0.70-1.50) mg/dL Estimated GFR (>60 ml/min/1.73m(2)) BUN/Creatinine Ratio (6-20) Glucose (78-110) mg/dL Calculated Osmolality (267-292) mOsm/kg Lactic Acid 2.3 H (0.70-2.10) MMOL/L Calcium (8.7-10.7) mg/dL Magnesium (1.6-2.4) mg/dL Total Bilirubin (0.3-1.2) mg/dL AST (21-57) IU/L ALT (21-72) IU/L Alkaline Phosphatase (38-126) IU/L Total Protein (6.1-8.0) g/dL Albumin (3.5-4.8) g/dL Globulin (2.50-4.10) g/dL Albumin/Globulin Ratio (1.3-2.0) mg/g Ur Collection Type Voided specimen Urine Color Yellow (Y) Urine Clarity Clear (CLEAR) Urine pH 5.5 (5.0-8.5) Ur Specific [place] 1.025 (1.005-1.030) Urine Protein 100 A (NEG) mg/dl Urine Glucose (UA) Negative (NEG) mg/dL Urine Ketones Negative (NEG) Urine Occult Blood Negative (NEG) Urine Nitrate Negative (NEG) Urine Bilirubin Small (NEG) Urine Urobilinogen 1.0 (0.2) EU/dL Ur Leukocyte Esterase Negative (NEG) Urine RBC None (NONE) /hpf Urine WBC 0-2 (NONE) Ur Squamous Epith Cells Few (NONE) Ur Renal Epithelial Cell None (NONE) Urine Crystals None Urine Bacteria Rare (NONE) Urine Casts None (NONE) Urine Mucus Many (NONE) Urine Trichomonas None (NONE) Urine Yeast None (NONE) Ur Culture Indicated? Culture not set Group A Strep Screen Negative (NEGATIVE) 02/16/18 Range/Units 01:39 WBC (4.8-10.8) 10^3/uL RBC (4.70-6.10) 10^6/uL Hgb (14.0-18.0) g/dL Hct (42.0-52.0) % MCV (80-90) FL MCH (27-31) PG MCHC (33-37) g/dL RDW Std Deviation (39-50) fL RDW Coeff of Vipin (11.5-14.5) % Plt Count (140-350) 10*3/uL MPV (7.4-12.2) FL Neutrophils % (Manual) (50-80) % Band Neutrophils % (0-10) % Lymphocytes % (Manual) (10-50) % Monocytes % (Manual) (0-12) % Eosinophils % (Manual) (0-8) % Basophils % (Manual) (0-1) % Metamyelocytes % Myelocytes % Promyelocytes % Blast Cells WBC Morphology Comment (NORM) Plt Morphology Comment (NORM) RBC Morph Comment (NORM) Sodium 133 L (135-145) meq/L Potassium 3.1 L (3.8-5.2) meq/L Chloride 105 (98-112) meq/L Carbon Dioxide 20 L (23-33) meq/L Anion Gap 8 (5-20) BUN 20 (7-22) mg/dL Creatinine 1.2 (0.70-1.50) mg/dL Estimated GFR > 60 (>60 ml/min/1.73m(2)) BUN/Creatinine Ratio 16.66 (6-20) Glucose 97 (78-110) mg/dL Calculated Osmolality 278.0 (267-292) mOsm/kg Lactic Acid (0.70-2.10) MMOL/L Calcium 6.7 L (8.7-10.7) mg/dL Magnesium (1.6-2.4) mg/dL Total Bilirubin (0.3-1.2) mg/dL AST (21-57) IU/L ALT (21-72) IU/L Alkaline Phosphatase (38-126) IU/L Total Protein (6.1-8.0) g/dL Albumin (3.5-4.8) g/dL Globulin (2.50-4.10) g/dL Albumin/Globulin Ratio (1.3-2.0) mg/g Ur Collection Type Urine Color (Y) Urine Clarity (CLEAR) Urine pH (5.0-8.5) Ur Specific [place] (1.005-1.030) Urine Protein (NEG) mg/dl Urine Glucose (UA) (NEG) mg/dL Urine Ketones (NEG) Urine Occult Blood (NEG) Urine Nitrate (NEG) Urine Bilirubin (NEG) Urine Urobilinogen (0.2) EU/dL Ur Leukocyte Esterase (NEG) Urine RBC (NONE) /hpf Urine WBC (NONE) Ur Squamous Epith Cells (NONE) Ur Renal Epithelial Cell (NONE) Urine Crystals Urine Bacteria (NONE) Urine Casts (NONE) Urine Mucus (NONE) Urine Trichomonas (NONE) Urine Yeast (NONE) Ur Culture Indicated? Group A Strep Screen (NEGATIVE) Procedures: [address] [facility]. [facility] [place] [address] PH: DD: [phone] FAX: [phone] ~DIAGNOSTIC IMAGING REPORT~ Patient: TINY AMANDA : 1990 Sex: M Age: 27 Exam Name: CT Abdomen/Pelvis W Contrast Exam Date: 02/15/18 Report # : [id number] CPT Code: 14769 EMR/MR #: [id number] Ordering: LISA CHIANG Admiting: LISA CHIANG DO Primary: NONE,NONE Attending: LISA CHIANG DO Signed EXAM: CT Abdomen and Pelvis With Intravenous Contrast CLINICAL HISTORY: ITS.REASON fever, abdominal pain, question appendicitis Physician Notes: oral and IV and rectal contrast.Tech Comments: TECHNIQUE: Axial computed tomography images of the abdomen and pelvis with intravenous contrast. COMPARISON: No relevant prior studies available. FINDINGS: Lung bases: No acute findings. ABDOMEN: Liver: Hepatomegaly. Gallbladder and bile ducts: Slightly prominent gallbladder wall, nonspecific. Pancreas: Unremarkable. Spleen: Borderline splenomegaly with ill-defined splenic hypodensity at the superior aspect. Adrenals: Unremarkable. Kidneys and ureters: Small ill-defined hypodensities in the right kidney, raising possibility of pyelonephritis in the appropriate clinical setting. No hydronephrosis. Stomach and bowel: Fluid in the small and large bowel, can be seen with enteritis or diarrheal disease. Mild wall thickening or underdistention of the terminal ileum and ascending colon. No evidence of bowel obstruction. PELVIS: Appendix: Visualized portions of the appendix appear normal in caliber. Bladder: Mildly thickened underdistended bladder. Reproductive: Unremarkable as visualized. ABDOMEN and PELVIS: Intraperitoneal space: No free air. No significant fluid collection. Bones/joints: Unremarkable. Soft tissues: Tiny fat-containing umbilical hernia. Vasculature: Unremarkable. Lymph nodes: Small nonspecific mesenteric and retroperitoneal lymph nodes. IMPRESSION: 1. Small ill-defined hypodensities in the right kidney, raising possibility of pyelonephritis in the appropriate clinical setting. 2. Fluid in the small and large bowel, can be seen with enteritis or diarrheal disease. 3. Small splenic hypodensity. Differential considerations include age- indeterminate infarct, trauma, infection, or other etiology. 4. Slightly prominent gallbladder wall, nonspecific. Ultrasound may be considered if there is concern for cholecystitis. 5. No evidence for appendicitis. Dictated By: Gale Becerra MD Signed By: 02/16/18 0034 Gale Becerra MD Patient Problems - Patient Problem List (1) Septic shock Current Visit: Yes Status: Acute Code(s): A41.9 - Sepsis, unspecified organism; R65.21 - Severe sepsis with septic shock Category: Medical (2) Sepsis Current Visit: Yes Status: Acute Code(s): A41.9 - Sepsis, unspecified organism Qualifiers: Sepsis type: sepsis due to unspecified organism Qualified Code(s): A41.9 - Sepsis, unspecified organism Category: Medical (3) Nausea and vomiting Current Visit: Yes Status: Acute Code(s): R11.2 - Nausea with vomiting, unspecified Qualifiers: Vomiting type: unspecified Vomiting Intractability: non-intractable Qualified Code(s): R11.2 - Nausea with vomiting, unspecified Category: Medical (4) Rigors Current Visit: Yes Status: Acute Code(s): R68.89 - Other general symptoms and signs Category: Medical (5) H/O aortic valve replacement Current Visit: Yes Status: Acute Code(s): Z95.2 - Presence of prosthetic heart valve Category: Medical (6) Heart murmur Current Visit: Yes Status: Acute Code(s): R01.1 - Cardiac murmur, unspecified Category: Medical (7) Fever Current Visit: Yes Status: Acute Code(s): R50.9 - Fever, unspecified Category: Medical (8) Electrolyte abnormality Current Visit: Yes Status: Acute Code(s): E87.8 - Other disorders of electrolyte and fluid balance, not elsewhere classified Category: Medical
[2018-02-16] MEDS ORDERED: fentaNYL Inj 100 MCG/2 ML VIAL IVP ONE (02:12)
[2018-02-16 02:29] VITALS: BP 96/50
--- NOTE | 2018-02-16 02:52 | DI ---
EXAM: XR Chest, 1 View CLINICAL HISTORY: ITS.REASON sepsis, hypotension, line placement, question ptx Physician Notes: Tech Comments: TECHNIQUE: Frontal view of the chest. COMPARISON: 02/15/18 FINDINGS: Lungs: Low lung volumes with probable atelectatic changes. Pleural space: No significant pleural effusion or pneumothorax. Heart: Unremarkable. Mediastinum: Unremarkable. Bones/joints: Unremarkable. Tubes, lines and devices: Interval placement of right central venous catheter, slightly obliquely oriented although the tip remains to the right of midline overlying the region of the distal SVC. IMPRESSION: Interval placement of right central venous catheter, slightly obliquely oriented although the tip remains to the right of midline overlying the region of the distal SVC.
== END 2018-02-16 02:36 | disposition short-term general hospital (02) | DRG 871 ==
LOC: ER 18:01 → MED/SURG 18:01
PROVIDERS: ADMIT Family Medicine; ATTEND Family Medicine